=== PATIENT | male | born 1955 | race Caucasian/White ===

== ENCOUNTER → 2017-04-12 | Outpatient (CLI) | payer OTHER ==
[~2017-04-12] MED LIST: BLOOD PRESSURE MED; CASODEX50 MG PO; CIPRO 500MG TA500 MG PO; FLOMAX 0.4MG C0.4 MG PO; LISINOPRIL 10MG10 MG PO; OMEPRAZOLE40 MG PO; PROCARDIA XL 3030 MG PO; WARFARIN 3MG TAB3 MG PO
--- NOTE | 2017-04-14 14:51 | RADIOLOGY REPORT PS360 ---
EXAM: CT LUNG LOW DOSE WO CONTRAST COMPARISON: 02/09/2016 HISTORY: 62-year-old male with greater than 30 pack-year smoking history , asymptomatic ORDERING PHYSICIAN: 02/09/2016 PATIENT AGE: 62 years TECHNIQUE: The exam was performed on a GE Light Speed [address] scanner using 2.95 mGy CTDI. A low dose helical CT CHEST was performed on a multi-detector scanner The LDCT was performed in a facility that meets the criteria for the screening program. Data regarding this exam was submitted to [employer] which is an approved registry. The order for this exam indicates that it came as a result of a lung cancer screening counseling shard decision-making visit that included all the elements required of such a visit including smoking cessation. The radiologist interpreting this exam meets the CMS criteria for the LDCT lung cancer screening program. The exam is reported using the Lung-RADS classification scale and reported to the ACR registry. NOTE: This study was performed for the specific purposes of lung cancer screening and is not an alternative to diagnostic chest CT. RADIATION DOSE: CTDI vol(CT dose Index-volume) = 2.95mG DLP (Dose Length Product) = 109.41 mGcm FINDINGS: Centrilobular and paraseptal emphysematous changes are present with hyperinflation and attenuation of the peripheral pulmonary vessels. Bullous changes are present in the apices. Scattered areas of parenchymal scarring are noted. A 6 mm groundglass opacity is present in the right upper lobe medially. Minimal opacification present in the right middle lobe inferiorly. There is some minimal nodularity along the major fissure on the right probably due to small lymph node. A 6 mm semisolid nodules present in the right upper lobe laterally. 4 mm irregular parenchymal opacity is present in the left upper lobe centrally. 5 mm solid-appearing nodules present in the left upper lobe anteriorly. Calcified granuloma is present in lingula. Ill-defined opacity is noted in the left lower lobe centrally with a 3 mm nodule in the left lower lobe posteriorly. There are coronary artery calcifications there is a medium-sized hiatal hernia. Nonobstructing right nephrolithiasis and left renal cyst. There is gynecomastia IMPRESSION: 1. Lung RADS Category: 3, probably benign 2. Other findings: Centrilobular and paraseptal emphysematous change with COPD Coronary artery disease Hiatal hernia Right nephrolithiasis RECOMMENDATIONS: [address] follow-up
== END ==
LOC: RAD 07:36
DX: Z87.891 Personal history of nicotine dependence (principal); Z12.2 Encounter for screening for malignant neoplasm of respiratory organs
CPT/HCPCS: G0297